=== PATIENT | male | born 1950 | race Caucasian/White ===

== ENCOUNTER 2023-03-22 10:03 | Observation (INO) | payer OTHER ==
[2023-03-22] VITALS (19 sets, daily range): BP systolic 119–139; BP diastolic 47–86; PULSE 57–104; RESP 14–20; O2SAT 97–98
[~2023-03-22 10:03] MED LIST: OMEP40CA21 PO
[2023-03-22 10:53] LABS: BASOPHILS # (AUTO) 0.14 K/uL (0.00-0.20); BASOPHILS % (AUTO) 1.3 % (0.0-5.0); EOSINOPHILS # (AUTO) 0.34 K/uL (0.00-0.70); EOSINOPHILS % (AUTO) 3.2 % (0.0-8.0); HEMATOCRIT 38.2 % (42-54); IMMATURE GRANULOCYTE ABSOLUTE 0.04 K/uL (0-1); LYMPHOCYTES # (AUTO) 1.3 K/uL (1.0-4.8); LYMPHOCYTES % (AUTO) 12.1 % (21.0-51.0); MEAN CORPUSCULAR HEMOGLOBIN 29.3 pg (27.0-33.0); MEAN CORPUSCULAR HGB CONC 32.5 g/dL (32.0-36.0); MEAN CORPUSCULAR VOLUME 90.3 fL (79-99); MONOCYTES # (AUTO) 0.8 K/uL (0.1-1.0); MONOCYTES % (AUTO) 7.8 % (3.0-13.0); NEUTROPHILS # (AUTO) 8.1 K/uL (1.8-7.7); NEUTROPHILS % (AUTO) 75.2 % (40.0-77.0); PLATELET COUNT (AUTO) 264 K/uL (130-400); RED BLOOD CELL COUNT(AUTO) 4.23 MIL/uL (4.50-6.20); RED CELL DISTRIBUTION WIDTH 16.4 % (11.0-15.5); WHITE BLOOD COUNT (AUTO) 10.8 K/uL (4.8-10.8)
[2023-03-22 11:00] LABS: CREATININE 0.6 mg/dL (0.5-1.5); POTASSIUM 4.3 mmol/L (3.5-5.1)
[2023-03-22 11:39] LABS: INR 1.75 (0.85-1.15); PROTHROMBIN TIME 19.6 SEC (9.6-11.6)
[2023-03-22 11:41] LABS: PARTIAL THROMBOPLASTIN TIME 44.1 SEC (26.3-35.5)
[2023-03-22] MEDS ORDERED: LIDOCAINE PF 100MG/5ML (2%) SYRINGE 5ML ONE (13:37)
[2023-03-22] MEDS ORDERED: DEXAMETHASONE SOD PHOSPHATE 10MG/ML 1ML VIAL ONE (13:37)
[2023-03-22] MEDS ORDERED: PROPOFOL 10 MG/ML 20ML VIAL IV ONE (13:38)
[2023-03-22] MEDS ORDERED: ROCURONIUM 10MG/1ML SYR 10 MG/ML ML ONE (13:38)
[2023-03-22] MEDS ORDERED: MIDAZOLAM HCL 1 MG/ML 2ML VIAL ONE (13:38)
[2023-03-22] MEDS ORDERED: ONDANSETRON 4MG INJ ONE (13:38)
[2023-03-22] MEDS ORDERED: FENTANYL CITRATE PF 50 MCG/1 ML 2ML VIAL ONE ×2 (13:39→16:24)
[2023-03-22] MEDS ORDERED: SUGAMMADEX SODIUM 200 MG/2 ML VIAL IV ONE (13:44)
[2023-03-22] MEDS ORDERED: IODIXANOL 320 MG/ML 100 ML VIAL ONE (13:56)
[2023-03-22] MEDS ORDERED: LIDOCAINE HCL 1% MDV 50ML VIAL ONE (13:56)
[2023-03-22] MEDS ORDERED: CEFAZOLIN SODIUM 1 GM VIAL ONE (14:59)
[2023-03-22] MEDS ORDERED: ONDANSETRON 4MG INJ IVP PRN (17:00)
[2023-03-22] MEDS ORDERED: MORPHINE 2 MG SYG IVP PRN (17:00)
[2023-03-22] MEDS ORDERED: 0.9%NACL 1000ML 1,000 ML IV SCH (17:00)
[2023-03-23] VITALS: BP 136/63; PULSE 75; RESP 20
[2023-03-23 05:39] VITALS: BP 113/69; PULSE 91; RESP 20
[2023-03-23 08:00] VITALS: BP 131/77; PULSE 85; RESP 18; O2SAT 99
[2023-03-23 12:00] VITALS: BP 111/65; PULSE 77; RESP 18
== END 2023-03-23 14:45 | disposition home or self-care (01) ==
LOC: DAH 10:03 → DAHIP 10:04 → 3AH 18:19
PROVIDERS: ADMIT Internal Medicine Hematology & Oncology; ATTEND Internal Medicine Hematology & Oncology
DX: K83.1 Obstruction of bile duct (principal); K74.60 Unspecified cirrhosis of liver; K21.9 Gastro-esophageal reflux disease without esophagitis; E78.5 Hyperlipidemia, unspecified; I25.10 Atherosclerotic heart disease of native coronary artery without angina pectoris; I10 Essential (primary) hypertension; J44.9 Chronic obstructive pulmonary disease, unspecified; Z87.891 Personal history of nicotine dependence; Z79.899 Other long term (current) drug therapy
CPT/HCPCS: 47553; 47534; 47542; 80048; 85025; 85610; 85730; 36415; 88307; 10030; 93005; C1769 ×6; C1894 ×3; C1729; C1725; G0378 ×22; J3010 ×2; J0690; J1100; J2001; J2250; J2704; J2405; J1644 ×2; J3490; Q9967; A4215; A4223 ×3; A4222; A4221; A4663; A4216; A4606; 47555; C1887